=== PATIENT | female | born 1995 | race Caucasian/White ===

== ENCOUNTER 2018-02-11 08:56 | Emergency (ER) | payer BC ==
[2018-02-11 09:02] VITALS: RESP 18
[2018-02-11] MEDS ORDERED: SODIUM CHLORIDE 0.9% 1,000 ML IV STA ×2 (09:10)
[2018-02-11] MEDS ORDERED: ONDANSETRON 4 MG/2 ML VIAL IVP STA (09:10)
[2018-02-11] MEDS ORDERED: KETOROLAC 30 MG/ML 1 ML VIAL IVP STA (09:10)
--- NOTE | 2018-02-11 09:14 | ED ---
Abdominal Pain HPI - General Chief Complaint: Abdominal Pain Stated Complaint: ABd Pain Time Seen by Provider: 02/11/18 09:03 Source: patient, RN notes reviewed, old records reviewed Mode of arrival: ambulatory Limitations: no limitations - History of Present Illness Initial Comments: This Patient is 22-year-old female presents emergency department today with chief complaint of abdominal cramping. Patient reports that she has had this similar episode one month ago. Patient reports that she has had no fevers or chills. She reports she has episodes of diarrhea today as well. She denies any surgical or medical history. Her CEREAL MAKER is Dr. Seo. Patient reports that she's been having increased cramping sensations after menstrual cycle the past few months. Patient states she's had no vomiting episodes but does feel slightly nauseated. - Related Data Previous Rx's Medication Instructions Recorded Ibuprofen 400 mg PO TID #20 tablet 02/11/18 Loperamide [Imodium] 2 mg PO TID #12 cap 02/11/18 Allergies Allergy/AdvReac Type Severity Reaction Status Date / Time No Known Allergies Allergy Verified 02/11/18 09:02 Review of Systems ROS Statement: Those systems with pertinent positive or pertinent negative responses have been documented in the HPI. ROS Other: All systems not noted in ROS Statement are negative. Past Medical History Past Medical History: No Reported History History of Any Multi-Drug Resistant Organisms: None Reported Past Surgical History: No Surgical Hx Reported Past Psychological History: No Psychological Hx Reported Smoking Status: Never smoker Past Alcohol Use History: Occasional Past Drug Use History: None Reported General Exam Limitations: no limitations General appearance: alert, in no apparent distress Head exam: Present: atraumatic, normocephalic, normal inspection Eye exam: Present: normal appearance, PERRL, EOMI. Absent: scleral icterus, conjunctival injection, periorbital swelling ENT exam: Present: normal exam, mucous membranes moist Neck exam: Present: normal inspection. Absent: tenderness, meningismus, lymphadenopathy Respiratory exam: Present: normal lung sounds bilaterally. Absent: respiratory distress, wheezes, rales, rhonchi, stridor Cardiovascular Exam: Present: regular rate, normal rhythm, normal heart sounds. Absent: systolic murmur, diastolic murmur, rubs, gallop, clicks GI/Abdominal exam: Present: soft, normal bowel sounds. Absent: distended, tenderness, guarding, rebound, rigid Extremities exam: Present: normal inspection, full ROM, normal capillary refill. Absent: tenderness, pedal edema, joint swelling, calf tenderness Back exam: Present: normal inspection Neurological exam: Present: alert, oriented X3, CN II-XII intact Psychiatric exam: Present: normal affect, normal mood Skin exam: Present: warm, dry, intact, normal color. Absent: rash Course Vital Signs 02/11/18 09:00 Temperature 98.2 F Pulse Rate 81 Respiratory 18 Rate Blood Pressure 131/76 O2 Sat by Pulse 98 Oximetry Medical Decision Making - Medical Decision Making 22-year-old female presents emergency room today with lower abdominal cramping, complains of some diarrhea as well. May labwork was reviewed and unremarkable. Urinalysis is negative. Her last menstrual period was 2 weeks ago. She has no vaginal bleeding. Patient pelvic ultrasound was negative for any acute process besides some mild free fluid which is likely physiologic. Patient was given Toradol and Zofran. She does feel much better after fluids and medications time. symptoms are likely related to changes during her menstrual cycle as well as IBS. Discussed she can follow-up with her PCP. We' ll give the Patient medication for diarrhea. Patient nurse's treatment plan will comply. Return parameters were discussed. - Lab Data Result diagrams: 02/11/18 09:27 02/11/18 09:27 Lab Results 02/11/18 02/11/18 02/11/18 Range/Units 09:27 09:27 09:27 WBC 6.8 (3.8-10.6) k/uL RBC 5.35 (3.80-5.40) m/uL Hgb 13.6 (11.4-16.0) gm/dL Hct 42.3 (34.0-46.0) % MCV 79.2 L (80.0-100.0) fL MCH 25.5 (25.0-35.0) pg MCHC 32.2 (31.0-37.0) g/dL RDW 13.1 (11.5-15.5) % Plt Count 250 (150-450) k/uL Neutrophils % 55 % Lymphocytes % 34 % Monocytes % 4 % Eosinophils % 5 % Basophils % 1 % Neutrophils # 3.8 (1.3-7.7) k/uL Lymphocytes # 2.3 (1.0-4.8) k/uL Monocytes # 0.3 (0-1.0) k/uL Eosinophils # 0.4 (0-0.7) k/uL Basophils # 0.0 (0-0.2) k/uL PT 10.0 (9.0-12.0) sec INR 1.0 (<1.2) APTT 27.0 (22.0-30.0) sec Sodium 141 (137-145) mmol/L Potassium 4.2 (3.5-5.1) mmol/L Chloride 108 H (98-107) mmol/L Carbon Dioxide 25 (22-30) mmol/L Anion Gap 8 mmol/L BUN 13 (7-17) mg/dL Creatinine 0.68 (0.52-1.04) mg/dL Est GFR (CKD-EPI)AfAm >90 (>60 ml/min/1.73 sqM) Est GFR (CKD-EPI)NonAf >90 (>60 ml/min/1.73 sqM) Glucose 88 (74-99) mg/dL Calcium 9.6 (8.4-10.2) mg/dL Total Bilirubin 0.2 (0.2-1.3) mg/dL AST 14 (14-36) U/L ALT 29 (9-52) U/L Alkaline Phosphatase 48 (38-126) U/L Total Protein 6.9 (6.3-8.2) g/dL Albumin 4.2 (3.5-5.0) g/dL Amylase 42 (30-110) U/L Lipase 48 (23-300) U/L Urine Color Urine Appearance (Clear) Urine pH (5.0-8.0) Ur Specific [place] (1.001-1.035) Urine Protein (Negative) Urine Glucose (UA) (Negative) Urine Ketones (Negative) Urine Blood (Negative) Urine Nitrite (Negative) Urine Bilirubin (Negative) Urine Urobilinogen (<2.0) mg/dL Ur Leukocyte Esterase (Negative) Urine RBC (0-5) /hpf Urine WBC (0-5) /hpf Ur Squamous Epith Cells (0-4) /hpf Urine Bacteria (None) /hpf Urine Mucus (None) /hpf Urine HCG, Qual (Not Detectd) 02/11/18 02/11/18 Range/Units 09:27 09:27 WBC (3.8-10.6) k/uL RBC (3.80-5.40) m/uL Hgb (11.4-16.0) gm/dL Hct (34.0-46.0) % MCV (80.0-100.0) fL MCH (25.0-35.0) pg MCHC (31.0-37.0) g/dL RDW (11.5-15.5) % Plt Count (150-450) k/uL Neutrophils % % Lymphocytes % % Monocytes % % Eosinophils % % Basophils % % Neutrophils # (1.3-7.7) k/uL Lymphocytes # (1.0-4.8) k/uL Monocytes # (0-1.0) k/uL Eosinophils # (0-0.7) k/uL Basophils # (0-0.2) k/uL PT (9.0-12.0) sec INR (<1.2) APTT (22.0-30.0) sec Sodium (137-145) mmol/L Potassium (3.5-5.1) mmol/L Chloride (98-107) mmol/L Carbon Dioxide (22-30) mmol/L Anion Gap mmol/L BUN (7-17) mg/dL Creatinine (0.52-1.04) mg/dL Est GFR (CKD-EPI)AfAm (>60 ml/min/1.73 sqM) Est GFR (CKD-EPI)NonAf (>60 ml/min/1.73 sqM) Glucose (74-99) mg/dL Calcium (8.4-10.2) mg/dL Total Bilirubin (0.2-1.3) mg/dL AST (14-36) U/L ALT (9-52) U/L Alkaline Phosphatase (38-126) U/L Total Protein (6.3-8.2) g/dL Albumin (3.5-5.0) g/dL Amylase (30-110) U/L Lipase (23-300) U/L Urine Color Yellow Urine Appearance Cloudy H (Clear) Urine pH 6.5 (5.0-8.0) Ur Specific [place] 1.027 (1.001-1.035) Urine Protein Trace H (Negative) Urine Glucose (UA) Negative (Negative) Urine Ketones Negative (Negative) Urine Blood Negative (Negative) Urine Nitrite Negative (Negative) Urine Bilirubin Negative (Negative) Urine Urobilinogen <2.0 (<2.0) mg/dL Ur Leukocyte Esterase Negative (Negative) Urine RBC <1 (0-5) /hpf Urine WBC 1 (0-5) /hpf Ur Squamous Epith Cells 4 (0-4) /hpf Urine Bacteria Rare H (None) /hpf Urine Mucus Rare H (None) /hpf Urine HCG, Qual Not Detected (Not Detectd) - Radiology Data Radiology results: report reviewed Skin small free fluid, likely physiologic and bilateral ovarian follicles also likely physiological. Otherwise unremarkable pelvic ultrasound with no endometrial thickening. Disposition Clinical Impression: Abdominal cramping, Diarrhea Disposition: HOME SELF-CARE Condition: Good Instructions: Acute Diarrhea (ED), Abdominal Pain (ED) Additional Instructions: Patient advised to take Motrin and Tylenol for pain. Patient can use the diarrhea medication as well as seated. Return to emergency department if any alarming signs or symptoms occur. Follow-up with primary care physician. Prescriptions: Ibuprofen 400 mg PO TID #20 tablet Loperamide [Imodium] 2 mg PO TID #12 cap Is patient prescribed a controlled substance at d/c from ED?: No Referrals: None,Stated [Primary Care Provider] - 1-2 days La Yanez MD [STAFF PHYSICIAN] - 1-2 days Time of Disposition: 10:53
[2018-02-11 09:37] LABS: Basophils % (A) 1 %; Eosinophils # (A) 0.4 k/uL (0-0.7); Eosinophils % (A) 5 %; HCT 42.3 % (34.0-46.0); HGB 13.6 gm/dL (11.4-16.0); Lymphocytes # (A) 2.3 k/uL (1.0-4.8); Lymphocytes % (A) 34 %; MCH 25.5 pg (25.0-35.0); MCHC 32.2 g/dL (31.0-37.0); MCV 79.2 fL (80.0-100.0); Mean Platelet Volume 7.1; Monocytes # (A) 0.3 k/uL (0-1.0); Monocytes % (A) 4 %; Neutrophils # (A) 3.8 k/uL (1.3-7.7); Neutrophils % (A) 55 %; Platelet Count 250 k/uL (150-450); RBC 5.35 m/uL (3.80-5.40); RDW 13.1 % (11.5-15.5); WBC 6.8 k/uL (3.8-10.6)
[2018-02-11 09:46] LABS: Appearance,Urine Cloudy (Clear); Bacteria,Urine Rare /hpf; Bilirubin,Urine Negative (Negative); Blood,Urine Negative (Negative); Color,Urine Yellow; Glucose,Urine (UA) Negative (Negative); Ketones,Urine Negative (Negative); Leukocyte Esterase,Urine Negative (Negative); Mucus,Urine Rare /hpf; Nitrite,Urine Negative (Negative); PH, Urine 6.5 (5.0-8.0); Protein,Urine Trace (Negative); RBC,Urine <1 /hpf (0-5); Specific Gravity,Urine 1.027 (1.001-1.035); Squamous Epithelial Cell,Urine 4 /hpf (0-4); Urobilinogen,Urine <2.0 mg/dL (<2.0); WBC,Urine 1 /hpf (0-5)
[2018-02-11 09:47] LABS: ALT 29 U/L (9-52); AST 14 U/L (14-36); Albumin 4.2 g/dL (3.5-5.0); Alkaline Phosphatase 48 U/L (38-126); Amylase 42 U/L (30-110); Anion Gap 8 mmol/L; Blood Urea Nitrogen 13 mg/dL (7-17); Calcium 9.6 mg/dL (8.4-10.2); Carbon Dioxide 25 mmol/L (22-30); Chloride 108 mmol/L (98-107); Glucose 88 mg/dL (74-99); Lipase 48 U/L (23-300); Potassium 4.2 mmol/L (3.5-5.1); Sodium 141 mmol/L (137-145); Total Bilirubin 0.2 mg/dL (0.2-1.3); Total Protein 6.9 g/dL (6.3-8.2)
--- NOTE | 2018-02-11 10:23 | US ---
EXAMINATION TYPE: US transvaginal DATE OF EXAM: 02/11/2018 COMPARISON: NONE CLINICAL HISTORY: Pain. Patient states she is having increased pelvic cramping following her last 2 p eriods. TECHNIQUE: Transvaginal ER exam. Date of LMP: 01/30/2018 EXAM MEASUREMENTS: Uterus: 6.8 x 3.3 x 3.8 cm Endometrial Stripe: 0.5 cm Right Ovary: 4.0 x 2.5 x 2.5 cm Left Ovary: 3.8 x 2.6 x 2.6 cm 1. Uterus: anteverted 2. Endometrium: wnl 3. Right Ovary: multiple follicles, largest = 0.9cm 4. Left Ovary: multiple follicles, largest = 0.9cm Spectral, color and waveform doppler imaging shows good arterial and venous flow within the ovaries ; there is no evidence for ovarian torsion. 5. Bilateral Adnexa: wnl 6. Posterior cul-de-sac: small amount of free fluid IMPRESSION: Scant amount of free fluid, likely physiologic and bilateral ovarian follicles, also like ly physiologic. Otherwise unremarkable pelvic ultrasound with no endometrial thickening.
[2018-02-11 11:25] VITALS: BP 110/56; PULSE 67; TEMP 98.8
== END 2018-02-11 11:26 | disposition home or self-care (01) ==
LOC: EC 08:56
DX: R10.30 Lower abdominal pain, unspecified (principal); R19.7 Diarrhea, unspecified; R11.0 Nausea
CPT/HCPCS: 36415; 80053; 82150; 83690; 85025; 85610; 85730; 81001; 81025; 87086; 93975; 76830; 99284; 96374; 96375; 96361 ×2; J2405; J1885

== ENCOUNTER 2020-02-22 08:40 | Emergency (ER) | payer BC ==
[2020-02-22 08:50] VITALS: RESP 18; TEMP 98.6
--- NOTE | 2020-02-22 09:17 | ED ---
General Adult HPI - General Chief complaint: Chest Pain Stated complaint: 28 wks preg/back pain Time Seen by Provider: 02/22/20 09:02 Source: patient, family, RN notes reviewed Mode of arrival: ambulatory Limitations: no limitations - History of Present Illness Initial comments: Patient is a pleasant 24-year-old female presenting to the emergency Department with right-sided thoracic back pain. Onset of symptoms was 437 this morning. Discomfort is moderate to severe. Patient has had similar episodes several times previously, twice in the past few days. Patient states discomfort is positional. No shortness of breath. No chest pain. No abdominal pain. No pelvic pain or vaginal bleeding. Patient is 28 weeks gravid. - Related Data Home Medications Medication Instructions Recorded Confirmed Kuo-Jfwi-Uabzs Acid 1 cap PO HS 02/22/20 02/22/20 [-U Capsule (formulary)] Previous Rx's Medication Instructions Recorded Cyclobenzaprine [Flexeril] 10 mg PO TID PRN #12 tablet 02/22/20 Allergies Allergy/AdvReac Type Severity Reaction Status Date / Time No Known Allergies Allergy Verified 02/22/20 09:31 Review of Systems ROS Statement: Those systems with pertinent positive or pertinent negative responses have been documented in the HPI. ROS Other: All systems not noted in ROS Statement are negative. Constitutional: Denies: fever Eyes: Denies: eye pain ENT: Denies: ear pain Respiratory: Denies: cough, dyspnea Cardiovascular: Denies: chest pain Endocrine: Denies: fatigue Gastrointestinal: Denies: abdominal pain Genitourinary: Denies: dysuria Musculoskeletal: Reports: as per HPI, back pain Skin: Denies: rash Neurological: Denies: weakness Past Medical History Past Medical History: No Reported History History of Any Multi-Drug Resistant Organisms: None Reported Past Surgical History: No Surgical Hx Reported Past Psychological History: No Psychological Hx Reported Smoking Status: Never smoker Past Alcohol Use History: Occasional Past Drug Use History: None Reported General Exam Limitations: no limitations General appearance: alert, in no apparent distress Head exam: Present: normocephalic Eye exam: Present: normal appearance Neck exam: Present: normal inspection Respiratory exam: Present: normal lung sounds bilaterally. Absent: chest wall tenderness Cardiovascular Exam: Present: regular rate, normal rhythm Expanded Peripheral pulses: 2+: Posterior Tibialis (R), Posterior Tibialis (L), Dorsalis Pedis (R), Dorsalis Pedis (L) GI/Abdominal exam: Present: soft, distended (Consistent with a gravid state of 28 weeks). Absent: tenderness, guarding, rebound, rigid Extremities exam: Present: normal inspection. Absent: pedal edema, calf tenderness Back exam: Present: tenderness (Muscle spasm right parathoracic region approximately T7 through T9.) Neurological exam: Present: alert Psychiatric exam: Present: normal affect, normal mood Skin exam: Present: normal color Course Vital Signs 02/22/20 02/22/20 08:47 09:07 Temperature 98.6 F Pulse Rate 99 Respiratory 18 18 Rate Blood Pressure 132/83 O2 Sat by Pulse 98 Oximetry - Reevaluation(s) Reevaluation #1: 02/22/20 09:20 heart tones by nursing staff 135-145 EKG Findings - EKG Comments: EKG Findings:: EKG shows sinus rhythm with a rate of 94. ID 106. QRS 84. QT 348. QTC 435. Normal axis. Normal QRS. Nonspecific T waves. Medical Decision Making - Medical Decision Making Case was discussed in detail with Dr. Lyn who is familiar with her patient. She is agreeable with injection and prescription for muscle relaxers. She does want to have a 20 minute nonstress test done by OB nurse and they have been called down. She would like to follow-up with patient within the week. - Radiology Data Radiology results: image reviewed (Chest x-ray shows no acute process) Disposition Clinical Impression: Back pain Disposition: HOME SELF-CARE Condition: Stable Instructions (If sedation given, give patient instructions): Back Pain (ED) Additional Instructions: Please follow-up with Dr. Lyn in the next couple of days for recheck. Please also follow-up with primary care physician. Return for difficulty in breathing, increase pain, change or worsening symptoms, or other concerns. Pres[facility] sent to [facility] Prescriptions: Cyclobenzaprine [Flexeril] 10 mg PO TID PRN #12 tablet PRN Reason: Pain Is patient prescribed a controlled substance at d/c from ED?: No Referrals: Christopher Cheney III, MD [Primary Care Provider] - 1-2 days Time of Disposition: 09:47
--- NOTE | 2020-02-22 09:28 | XR ---
EXAMINATION TYPE: XR chest 2V DATE OF EXAM: 02/22/2020 CLINICAL HISTORY: Back pain TECHNIQUE: Frontal and lateral views of the chest are obtained. COMPARISON: None FINDINGS: The cardiomediastinal silhouette is within normal limits for size. Pulmonary vasculature i s normal. There is no focal air space opacity, pleural effusion, or pneumothorax seen. The osseous st ructures are intact. IMPRESSION: No acute cardiopulmonary process.
[2020-02-22] MEDS ORDERED: ORPHENADRINE 30 MG/ML 2 ML VIAL IM STA (09:45)
[2020-02-22 10:06] VITALS: BP 119/72; PULSE 92
== END 2020-02-22 10:05 | disposition home or self-care (01) ==
LOC: EC 08:40
DX: O26.893 Other specified pregnancy related conditions, third trimester (principal); M54.9 Dorsalgia, unspecified; Z3A.28 28 weeks gestation of pregnancy
CPT/HCPCS: 93005; 71046; 99285; 96372; J2360

== ENCOUNTER 2020-02-22 10:12 | Outpatient (CLI) | payer BC ==
[2020-02-22 11:29] VITALS: BP 128/65; PULSE 76; RESP 17; TEMP 97.8
--- NOTE | 2020-02-24 09:28 | P.MSEPDOC ---
Presenting Problems - Arrival Data Date of Arrival on Unit: 02/22/20 Time of Arrival on Unit: 10:12 Mode of Transport: Ambulatory - Complaint OB-Reason for Admission/Chief Complaint: NST Comment: pt sent up from ER to have NST done per Dr. Powell Medical History - Information : 1 Para: 0 Term: 0 : 0 Abortions: Spontaneous or Elective: 0 Number of Living Children: 0 - Gestational Age Gestational Age by MEHUL (wks/days): 28 Weeks and 2 Days Review of Systems - Review of Systems Constitutional: No problems Breast: No problems ENT: No problems Cardiovascular: No problems Respiratory: No problems Gastrointestinal: No problems Genitourinary: No problems Musculoskeletal: No problems Neurological: No problems Skin: No problems Vital Signs - Temperature Temperature: 97.8 F Temperature Source: Temporal Artery Scan - Pulse Right Brachial Pulse Rate: 76 Pulse Assessment Method: Automatic Cuff - Respirations Respiratory Rate: 17 Oxygen Delivery Method: Room Air O2 Sat by Pulse Oximetry: 98 - Blood Pressure Right Arm Blood Pressure: 128/65 Blood Pressure Mean: 86 Blood Pressure Source: Automatic Cuff Medical Screen Scoring (Pre) - Cervical Exam Dilation: Exam Deferred Effacement: Exam Deferred Membranes: Intact - Uterine Contractions Frequency: > 5 minutes apart = 1 Duration: N/A Intensity: N/A - Maternal Vital Signs Maternal Temperature: N/A Maternal Blood Pressure: N/A Signs of Preeclampsia: N/A Maternal Respirations: N/A - Maternal Trauma Maternal Trauma: N/A - Assessment - Baby A Baseline FHR: 135 Heart Rate - NICHD Category: Category I (Normal) = 0 NST: Reactive Position: N/A Station: N/A - Total Score - Baby A Total Score - Baby A: 1 - Total Score - Baby B Total Score - Baby B: 1 - Total Score - Baby C Total Score - Baby C: 1 - Level of Risk - Baby A Level of Risk - Baby A: Low (0-5) - Level of Risk - Baby B Level of Risk - Baby B: Low (0-5) - Level of Risk - Baby C Level of Risk - Baby C: Low (0-5) Physician Notification (Pre) - Physician Notified Physician Notified Date: 02/22/20 Physician Notified Time: 11:08 New Order Received: Yes - Notification Comment Comment: reported reactive nst, cervical exam done, pt closed/thick/high, pt discharged home with instructions to call for follow up in office Disposition - Disposition OB Disposition: Triage, Discharge to home, Written follow up instructions reviewed Discharge Date: 02/22/20 Discharge Time: 11:25 I agree with the RN Medical Screening Exam: Yes Risk & Benefit of care provided described in d/c instruction: Yes Diagnosis: LOW BACK PAIN
== END 2020-02-22 11:25 | disposition home or self-care (01) ==
LOC: FBPOP 10:12
PROVIDERS: ATTEND Obstetrics & Gynecology Obstetrics
DX: O99.89 Other specified diseases and conditions complicating pregnancy, childbirth and the puerperium (principal); M54.5 Low back pain; Z3A.28 28 weeks gestation of pregnancy
CPT/HCPCS: 59025; 99213

== ENCOUNTER 2020-05-08 06:05 | Inpatient (IN) | payer BC ==
[2020-05-08] MEDS ORDERED: METHYLERGONOVINE 0.2 MG/ML 1 ML AMP IM PRN (06:23)
[2020-05-08] MEDS ORDERED: LIDOCAINE 0.5% (PF) 5 MG/ML (50 ML SDV) SQ PRN (06:23)
[2020-05-08] MEDS ORDERED: CARBOPROST TROMETHAMINE 250 MCG/ML 1 ML AMP IM PRN (06:23)
[2020-05-08] MEDS ORDERED: TERBUTALINE 1 MG/ML VIAL SQ PRN (06:23)
[2020-05-08] MEDS ORDERED: OXYTOCIN 10 UNIT/ML 1 ML VIAL IM PRN (06:23)
[2020-05-08] MEDS ORDERED: OXYTOCIN 30 UNITS/500 ML NS 30 UNIT in SALINE 1 500ML.BAG IV SCH (06:30)
[2020-05-08] MEDS: LACTATED RINGERS 1,000 ML IV SCH ×2 (06:33→10:29)
[2020-05-08 06:51] LABS: Basophils % (A) 0 %; Eosinophils # (A) 0.2 k/uL (0-0.7); Eosinophils % (A) 2 %; HCT 36.8 % (34.0-46.0); HGB 11.5 gm/dL (11.4-16.0); Hypochromasia Slight; Lymphocytes # (A) 2.3 k/uL (1.0-4.8); Lymphocytes % (A) 20 %; MCH 24.4 pg (25.0-35.0); MCHC 31.3 g/dL (31.0-37.0); MCV 77.9 fL (80.0-100.0); Mean Platelet Volume 9.1; Monocytes # (A) 0.5 k/uL (0-1.0); Monocytes % (A) 4 %; Neutrophils # (A) 8.3 k/uL (1.3-7.7); Neutrophils % (A) 72 %; Platelet Count 261 k/uL (150-450); RBC 4.72 m/uL (3.80-5.40); RDW 15.4 % (11.5-15.5); WBC 11.6 k/uL (3.8-10.6)
--- NOTE | 2020-05-08 08:20 | P.HPOB ---
History of Present Illness H&P Date: 05/08/20 Chief Complaint: IUP at 39 and 1/sevenths weeks this is a 24-year-old 1 para 0 at 39 and one sevenths weeks that presented to labor and delivery for elective induction of labor. Patient struggled with low back pain throughout the and desired induction seco ndary to maternal discomfort. Patient is really been receiving routine care which has been essentially uncomplicated. Patient notes good movement and occasional contractions this morning. She denies vaginal bleeding or loss of fluid. on bloodwork patient has a blood type of O-, rubella status immune, RPR nonreactive, hep B surface antigen negative, HIV negative she did receive program on 02/19, TDap on 03/19, group beta strep was negative on 04/19. Review of Systems Constitutional: Denies chills, Denies fatigue, Denies fever Ears, nose, mouth and throat: Denies headache Cardiovascular: Reports leg edema Respiratory: Denies dyspnea Gastrointestinal: Denies constipation, Denies diarrhea, Denies nausea, Denies vomiting Genitourinary: Reports Past Medical History Past Medical History: No Reported History History of Any Multi-Drug Resistant Organisms: None Reported Past Surgical History: No Surgical Hx Reported Additional Past Surgical History / Comment(s): wisdom teeth Past Anesthesia/Blood Transfusion Reactions: No Reported Reaction Past Psychological History: No Psychological Hx Reported Smoking Status: Never smoker Past Alcohol Use History: None Reported Past Drug Use History: None Reported - Past Family History Mother Family Medical History: No Reported History Medications and Allergies Home Medications Medication Instructions Recorded Confirmed Type Acetaminophen [Tylenol] 325 mg PO Q4H PRN 02/22/20 05/08/20 History Lra-Tlor-Awcpt Acid 1 cap PO HS 02/22/20 05/08/20 History [-U Capsule (formulary)] Famotidine [Pepcid] 10 mg PO DAILY 05/08/20 05/08/20 History Allergies Allergy/AdvReac Type Severity Reaction Status Date / Time No Known Allergies Allergy Verified 05/08/20 06:22 Exam Osteopathic Statement: *. No significant issues noted on an osteopathic structural exam other than those noted in the History and Physical/Consult. 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 Results Result Diagrams: 05/08/20 06:30 Abnormal Lab Results - Last 24 Hours (Table) 05/08/20 Range/Units 06:30 WBC 11.6 H (3.8-10.6) k/uL MCV 77.9 L (80.0-100.0) fL MCH 24.4 L (25.0-35.0) pg Neutrophils # 8.3 H (1.3-7.7) k/uL Assessment and Plan (1) Term Current Visit: Yes Status: Acute Code(s): Z34.90 - ENCNTR FOR SUPRVSN OF NORMAL , UNSP, UNSP TRIMESTER SNOMED Code(s): 70734054 Plan: patient is admitted to labor and delivery for planned Pitocin induction of labor. Pitocin is begun per hospital protocol. Amniotomy was performed and clear fluid was obtained. Options for analgesia were discussed with the patient including Stadol/epidural. Patient does desire epidural when appropriate.
[2020-05-08] MEDS ORDERED: ROPIVACAINE 100 MG, fentaNYL (PF) 200 MCG in SODIUM CHLORIDE 0.9% 76 ML EPIDURAL ONE (10:53)
[2020-05-08] MEDS ORDERED: fentaNYL (PF) 50 MCG/ML 5 ML AMP ONE (13:33)
[2020-05-08] MEDS ORDERED: ROPIVACAINE 5MG/ML 20ML VIAL ONE (13:33)
[2020-05-08] MEDS ORDERED: SODIUM CHLORIDE 0.9% 100 ML BAG ONE (13:33)
[2020-05-08] MEDS ORDERED: HYDROCORTISONE 2.5% RECTAL CREAM 30 GM TUBE RECTAL PRN (19:08)
[2020-05-08] MEDS ORDERED: LANOLIN CREAM 5 GM TUBE TOPICAL PRN (19:08)
[2020-05-08] MEDS ORDERED: SIMETHICONE 80 MG CHEWABLE PO PRN (19:08)
[2020-05-08] MEDS ORDERED: diphenhydrAMINE 25 MG CAP PO PRN (19:08)
[2020-05-08] MEDS ORDERED: diphenhydrAMINE 50 MG/ML 1 ML VIAL IVP PRN ×2 (19:08)
[2020-05-08] MEDS ORDERED: HYDROcodone/APAP 5-325MG 1 EACH TAB PO PRN (19:08)
[2020-05-08] MEDS ORDERED: ZOLPIDEM 5 MG TAB PO PRN (19:08)
[2020-05-08] MEDS ORDERED: diphenhydrAMINE 50 MG CAP PO PRN (19:08)
[2020-05-08] MEDS ORDERED: BENZOCAINE/MENTHOL SPRAY 1 GM/SPRAY AEROSOL TOPICAL PRN (19:08)
--- NOTE | 2020-05-08 19:11 | P.PROBDLV ---
Vaginal Delivery Note - . Vaginal Delivery Note: This 24-year-old 1 para 0 at 39 and one sevenths weeks with an estimated due date of 05/14 presents to labor and delivery for scheduled elective induction of labor. Patient was noted to be 3 cm dilated. Patient was started on Pitocin for induction of labor. Pitocin induction of labor was begun per hospital protocol. Patient underwent amniotomy once regular contractions were noted clear fluid was obtained. Patient progressed through labor eventually becoming uncomfortable and requesting epidural placement. Epidural was placed without difficulty by the anesthesia department. Patien progressed to complete began pushing and had a normal spontaneous vaginal delivery of a viable female at 1842, weight of 7 lbs. 9 oz. with Apgars of 9 and 9 at one and 5 minutes respectively. Infant did have a loose body cord which was delivered through. After two-minute delayed the umbilical cord was doubly clamped and cut and the placenta was delivered spontaneous intact with a three-vessel cord being noted. On inspection the patient's vaginal vault a a second degree vaginal laceration was noted this was repaired in the usual fashion with 3-0 Rapide. Hemostasis was appreciated and the closure. Rectal exam was performed and found to be normal. Uterus is noted to be firm and below the umbilicus. Estimated blood loss 200 mL. patient and tolerated delivery well and are resting comfortably.
[2020-05-08] MEDS ORDERED: OXYTOCIN 20 UNITS/1000 ML NS 1,000 ML IV SCH (19:15)
[2020-05-08] MEDS: IBUPROFEN 600 MG TAB PO PRN (19:32)
[2020-05-08] MEDS: SENNOSIDES-DOCUSATE SODIUM 1 EACH TAB PO SCH (19:33)
[2020-05-08] MEDS ORDERED: PRENATAL VIT-IRON-FOLIC ACID 1 EACH CAP PO SCH (21:00)
[2020-05-08] MEDS ORDERED: Rhogam IMMUNE GLOBULIN 1,500 UNIT/1 ML IM ONE (23:48)
[2020-05-09] MEDS: IBUPROFEN 600 MG TAB PO PRN ×2 (05:51→13:44)
[2020-05-09 05:59] VITALS: RESP 16
[2020-05-09 07:33] LABS: Basophils % (A) 0 %; Eosinophils # (A) 0.1 k/uL (0-0.7); Eosinophils % (A) 0 %; HCT 31.3 % (34.0-46.0); HGB 10.2 gm/dL (11.4-16.0); Hypochromasia Slight; Lymphocytes % (A) 10 %; MCH 25.4 pg (25.0-35.0); MCHC 32.5 g/dL (31.0-37.0); MCV 78.1 fL (80.0-100.0); Mean Platelet Volume 7.5; Monocytes # (A) 0.6 k/uL (0-1.0); Monocytes % (A) 3 %; Neutrophils # (A) 16.7 k/uL (1.3-7.7); Neutrophils % (A) 85 %; Platelet Count 208 k/uL (150-450); RBC 4.01 m/uL (3.80-5.40); RDW 15.4 % (11.5-15.5); WBC 19.7 k/uL (3.8-10.6)
--- NOTE | 2020-05-09 08:28 | P.DS ---
Providers Date of admission: 05/08/20 06:05 Expected date of discharge: 05/09/20 Attending physician: Angy Powell Primary care physician: Stated None - Discharge Diagnosis(es) (1) Term Current Visit: Yes Status: Acute (2) Status post normal vaginal delivery Current Visit: Yes Status: Acute (3) Obstetrical laceration, second degree Current Visit: Yes Status: Acute Hospital Course: This is a 24-year-old that presented to labor and delivery at 39 and one sevenths weeks for planned induction of labor. Patient has been struggling with back pain throughout and wished induction of labor. Patient was admitted to labor and delivery and Pitocin induction of labor was begun, per hospital protocol. Patient underwent amniotomy and clear fluid was obtained. Patient progressed in labor eventually becoming uncomfortable and requesting epidural placement. Epidural was placed without difficulty by the anesthesia department. Patient progressed to complete began pushing and had a normal spontaneous vaginal delivery of a viable female infant at 1842, weight of 7 lbs. 9 oz. with Apgars of 9 and 9 at one and 5 minutes respect daily. Patient did sustain a second-degree vaginal laceration which was repaired in the usual fashion with 3- 0 Rapide. Patient's post course has been uneventful. On this day 1 she is ambulating and voiding without difficulty. She is tolerating a regular diet without nausea or vomiting. She is bottle feeding. She does desire discharge home at 24 hours if appropriate. Patient Condition at Discharge: Good Plan - Discharge Summary New Discharge Prescriptions: No Action Xtw-Falo-Mpiht Acid [-U Capsule (formulary)] 1 cap PO HS Acetaminophen [Tylenol] 325 mg PO Q4H PRN PRN Reason: Pain Famotidine [Pepcid] 10 mg PO DAILY Discharge Medication List Acetaminophen [Tylenol] 325 mg PO Q4H PRN 02/22/20 [History] Jsv-Irii-Oowmp Acid [-U Capsule (formulary)] 1 cap PO HS 02/22/20 [History] Famotidine [Pepcid] 10 mg PO DAILY 05/08/20 [History] Follow up Appointment(s)/Referral(s): Angy Powell DO [Doctor of Osteopathic Medicine] - 4 Weeks Patient Instructions/Handouts: Vaginal Delivery (DC), Vaginal Delivery (GEN) Activity/Diet/Wound Care/Special Instructions: Patient can expect. Like bleeding for 4-6 weeks status post vaginal delivery. Patient is to use dlsk-ljn-aatfoll ibuprofen 600 mg as needed for pain. She is to avoid tub baths or intercourse until 6 weeks post . She is to call with any concerns prior to her visit. Discharge Disposition: HOME SELF-CARE
[2020-05-09] MEDS: SENNOSIDES-DOCUSATE SODIUM 1 EACH TAB PO SCH (08:33)
[2020-05-09] MEDS: ACETAMINOPHEN TAB 325 MG TAB PO PRN ×2 (08:33→18:30)
[2020-05-09 16:16] VITALS: BP 122/66; PULSE 86; TEMP 97.9
== END 2020-05-09 19:50 | disposition home or self-care (01) | DRG 807 ==
LOC: 4FBP 06:05
PROVIDERS: ADMIT Obstetrics & Gynecology Obstetrics; ATTEND Obstetrics & Gynecology Obstetrics
PROC: 3E033VJ Introduction of Other Hormone into Peripheral Vein, Percutaneous Approach (ICD-10-PCS; principal; 2020-05-08)
PROC: 10907ZC Drainage of Amniotic Fluid, Therapeutic from Products of Conception, Via Natural or Artificial Opening (ICD-10-PCS; principal; 2020-05-08)
PROC: 3E0R3BZ Introduction of Anesthetic Agent into Spinal Canal, Percutaneous Approach (ICD-10-PCS; principal; 2020-05-08)
PROC: 00HU33Z Insertion of Infusion Device into Spinal Canal, Percutaneous Approach (ICD-10-PCS; principal; 2020-05-08)
PROC: 10E0XZZ Delivery of Products of Conception, External Approach (ICD-10-PCS; principal; 2020-05-08)
PROC: 0KQM0ZZ Repair Perineum Muscle, Open Approach (ICD-10-PCS; principal; 2020-05-08)
DX: O69.81X0 Labor and delivery complicated by cord around neck, without compression, not applicable or unspecified (principal); Z37.0 Single live birth; M54.5 Low back pain; O70.1 Second degree perineal laceration during delivery; O99.891 Other specified diseases and conditions complicating pregnancy; Z3A.39 39 weeks gestation of pregnancy
CPT/HCPCS: 85025; 85461; 86850; 86870; 86880; 86900; 86901

== ENCOUNTER → 2021-10-07 | Outpatient (CLI) | payer OTHER ==
--- NOTE | 2021-10-08 08:57 | US ---
EXAMINATION TYPE: US pelvis complete transvag DATE OF EXAM: 10/07/2021 COMPARISON: 02/11/2018 CLINICAL HISTORY: 26-year-old female N92.6 IRREGULAR MENSES. TECHNIQUE: Transabdominal sonographic images of the pelvis were acquired. Transvaginal sonographic i mages were medically necessary to better assess the following anatomy: Ovaries Date of LMP: 09/22/2021, FINDINGS: EXAM MEASUREMENTS: Uterus: 7.0 x 4.0 x 3.8 cm Endometrial Stripe: 0.3 cm Right Ovary: 2.9 x 2.6 x 1.9 cm Left Ovary: 3.0 x 1.9 x 2.3 cm 1. Uterus: Anteverted, slightly retroflexed and otherwise wnl 2. Endometrium: wnl 3. Right Ovary: Follicles seen 4. Left Ovary: Follicles seen 5. Bilateral Adnexa: wnl 6. Posterior cul-de-sac: no free fluid IMPRESSION: Follicular change in both ovaries. No pelvic free fluid. Endometrial stripe measuring 3 mm thick.
== END | disposition home or self-care (01) ==
LOC: RADUSWWP 16:11
PROVIDERS: ATTEND Obstetrics & Gynecology
DX: N83.02 Follicular cyst of left ovary (principal); N83.01 Follicular cyst of right ovary
CPT/HCPCS: 76830; 76856

== ENCOUNTER → 2022-02-24 | Outpatient (CLI) | payer OTHER ==
--- NOTE | 2022-02-25 07:23 | US ---
EXAMINATION TYPE: Transabdominal DATE OF EXAM: 02/24/2022 4:34 PM COMPARISON: NONE CLINICAL HISTORY: Z36.89 CONFIRM GESTATIONAL AGE AND VIABILITY. Confirm dates EXAM PERFORMED: Transabdominal (TA) EXAM MEASUREMENTS: GESTATIONAL AGE / DATING Physician Established: Not yet established Dates by LMP: (12 weeks/6 days) EDC: 09/02/22 Dates by First Scan: No previous this is first scan Dates by Current Scan for: (12 weeks/6 days) EDC: 09/02/22 MATERNAL ANATOMY Uterus: 14.8 x 6.5 x 9.0cm Right Ovary: 3.1 x 1.6 x 1.8cm Left Ovary: 2.7 x 2.0 x 1.3cm Post CDS / Adnexa: wnl Presence of free fluid: no Presence of corpus luteal cyst: yes, right ovary = 2.3 x 1.3 x 2.3cm GESTATION / SURVEY CRL: 6.4cm (12 weeks/6 days) Yolk Sac (normal less than 6mm): not seen Heart Rate: 165 bpm Rhythm: Normal IUP: Viable IUP Date of LMP: 11/26/21 Beta HcG (if available): Not available at this time IMPRESSION: Single live intrauterine gestation with estimated gestational age of 12 weeks 6 days and estimated du e date of 09/02/2022.
== END | disposition home or self-care (01) ==
LOC: RADUSWWP 16:11
PROVIDERS: ATTEND Obstetrics & Gynecology
DX: Z36.89 Encounter for other specified antenatal screening (principal); Z3A.12 12 weeks gestation of pregnancy
CPT/HCPCS: 76801

== ENCOUNTER → 2022-04-08 | Outpatient (CLI) | payer OTHER ==
--- NOTE | 2022-04-09 10:19 | US ---
EXAMINATION TYPE: US OB anatomy transabd DATE OF EXAM: 04/08/2022 COMPARISON: 02/24/2022 HISTORY: 26-year-old female O36.62X0 MATERNAL CARE FOR EXCESS GROWTH, SE. anatomy. . TECHNIQUE: Transabdominal (TA) EXAM MEASUREMENTS: GESTATIONAL AGE / DATING Physician Established: (19 weeks/0 days) EDC: 09/02/2022 Dates by LMP: (19 weeks/0 days) EDC: 09/02/2022 Dates by First Scan: (19 weeks/0 days) EDC: 09/02/2022 Dates by Current Scan for: (19 weeks/4 days). 4 days more growth than expected compared to 2. EDC: 08/29/2022 SURVEY IUP: Single PLACENTA: Category Development Analyst notes: Anterior. Appeared low lying before patient emptied her bladder. Patient emptied her bladder a second time, and placenta does not appear to be low lying. PREVIA: No previa, inferior placental margin located approximately 4 to 5 cm from the internal cervic al os. CINDY: 14.7 cm Normal CERVICAL LENGTH (transabdominal: norm > 3.0cm): 4.0 cm BIOMETRY PRESENTATION: Transverse LIE: Transverse lie with head maternal R BPD: 4.5 cm 19 weeks / 5 days HC: 16.4 cm 19 weeks / 1 day AC: 13.9 cm 19 weeks / 3 days FL: 3.1 cm 19 weeks / 5 days ESTIMATED WEIGHT IN GRAMS: 292 grams ESTIMATED WEIGHT IN LBS/OZ: 0 lbs. 10 oz. WEIGHT PERCENTAGE BASED ON ESTABLISHED DATE: 71% HC/AC: 1.18 Normal FL/AC: 22% HEART RATE: 140 bpm RHYTHM: Normal ANATOMY SEEN (within normal limits): Lateral Vent (< 1 cm) 0.64 cm Cisterna Magna (< 1.1 cm) 0.38 cm Nuchal Fold (< 0.6 cm) 0.26 cm Cerebellum (varies with age) 1.86 cm Choroid Plexus (bilateral) Midline Falx Cavus Septi Pellucidi Four Chamber Heart Outflow tracts: LVOT Stomach Situs Nose / Lips Diaphragm Kidneys (bilateral) Bladder Three Vessel Cord Transverse Spine Legs (bilateral) ANATOMY NOT SEEN or SUBOPTIMAL: RVOT Longitudinal Spine (limited visualization of the caudal spine and inferior skin line) Arms (bilateral) (radius and ulna not well delineated along their entire length) Cord Insert (excessive crowding of structures) MEAT PACKAGER NOTES: Incidental finding: echogenic area seen that appears mobile within the gestational sac. Possible clot measurin.6 x 2.3 x 0.7 cm. Recommend reassessment at call back. Patient given scheduling number for OB call back within 1-2 weeks* IMPRESSION: 1. Single live intrauterine with established gestational age of 19 weeks 0 days by LMP. Cur rent ultrasound biometry is concordant (19 weeks 4 days) placed metallic the 71st percentile for [facility]. 2. Anterior placenta initially appeared low. Later in the exam, we were able to confirm that it is lo cated 4 to 5 cm from the internal cervical os. 3. Mobile echogenic area, possible blood clot measuring 2.3 x 1.6 cm dependent within the gestational sac. Reassessed at follow-up. 4. RVOT, inferior aspect of the longitudinal spine, radius/ulna, and cord insertion not optimally vis ualized due to position. Patient can be rescanned in one to 2 weeks to reassess these structure s. The remaining structures appeared normal.
== END | disposition home or self-care (01) ==
LOC: RADUSWWP 15:34
PROVIDERS: ATTEND Obstetrics & Gynecology
DX: O36.62X0 Maternal care for excessive fetal growth, second trimester, not applicable or unspecified (principal); Z3A.19 19 weeks gestation of pregnancy
CPT/HCPCS: 76811

== ENCOUNTER → 2022-04-22 | Outpatient (CLI) | payer OTHER ==
--- NOTE | 2022-04-23 08:05 | US ---
EXAMINATION TYPE: US OB Call Back DATE OF EXAM: 04/22/2022 COMPARISON: US CLINICAL HISTORY: O36.62X0 MATERNAL CARE FOR EXCESS GROWTH. Call back for RVOT, arms, cord inse rtion, longitudinal spine. GESTATIONAL AGE / DATING Dates by Initial Survey Scan: (19 weeks/0 days) EDC: 09/02/2022 HEART RATE: 139 bpm RHYTHM: Normal ANATOMY SEEN (second anatomic survey look): Outflow tracts:? RVOT Cord Insert Longitudinal Spine: Arms (bilateral) Echogenic area seen on prior exam within the gestational sac, unable to visualize on today's ultrasou nd. IMPRESSION: 1. Additional anatomy callback appears unremarkable.
== END | disposition home or self-care (01) ==
LOC: RADUSWWP 16:13
PROVIDERS: ATTEND Obstetrics & Gynecology
DX: O36.62X0 Maternal care for excessive fetal growth, second trimester, not applicable or unspecified (principal); Z3A.19 19 weeks gestation of pregnancy

== ENCOUNTER → 2022-07-29 | Outpatient (CLI) | payer OTHER ==
--- NOTE | 2022-07-29 20:07 | US ---
EXAMINATION TYPE: US OB >= 14 wk fetus DATE OF EXAM: 07/29/2022 COMPARISON: None CLINICAL HISTORY: O36.63X0 MATERNAL CARE FOR EXCESS GROWTH, TH growth. TECHNIQUE: Transabdominal (TA) GESTATIONAL AGE / DATING Physician Established: (35 weeks/4 days) EDC: 08/29/2022 Dates by LMP: (35 weeks/4 days) EDC: 08/29/2022 Dates by First Scan: (12 weeks/4 days) EDC: 09/02/2022 Dates by Current Scan: (35 weeks/1 days) EDC: 09/01/2022 SURVEY IUP: Single PLACENTA: Anterior PREVIA: No Previa CINDY: 14.2 cm Normal CERVICAL LENGTH (transabdominal: norm > 3.0cm): 3.0 cm BIOMETRY PRESENTATION: Vertex LIE: Longitudinal BPD: 9.13 cm 37 weeks / 0 days HC: 31.52 cm 35 weeks / 3 days AC: 32.40 cm 36 weeks / 2 days FL: 6.73 cm 34 weeks / 4 days ESTIMATED WEIGHT IN GRAMS: 2786 grams ESTIMATED WEIGHT IN LBS/OZ: 6 lbs. 2 oz. WEIGHT PERCENTAGE BASED ON ESTABLISHED DATES: 57.5% HC/AC: 0.97 Normal FL/AC: 20.77 Normal HEART RATE: 152 bpm RHYTHM: Normal IMPRESSION: Single live intrauterine gestation with ultrasound age of 35 weeks 1 day. Additional information as d escribed above.
== END | disposition home or self-care (01) ==
LOC: RADUSWWP 15:48
PROVIDERS: ATTEND Obstetrics & Gynecology
DX: O36.63X0 Maternal care for excessive fetal growth, third trimester, not applicable or unspecified (principal); Z3A.35 35 weeks gestation of pregnancy
CPT/HCPCS: 76805

== ENCOUNTER 2023-07-28 17:33 | Emergency (ER) | payer OTHER ==
[2023-07-28 18:11] VITALS: BP 135/84; PULSE 87; RESP 16; TEMP 99
--- NOTE | 2023-07-28 18:27 | ED ---
General Adult HPI - General Source: patient, RN notes reviewed Mode of arrival: ambulatory Limitations: no limitations <Delia Avila - Last Filed: 07/28/23 18:26> <Zachariah Muñoz - Last Filed: 07/29/23 04:01> - General Chief complaint: GI Bleed Stated complaint: Abd Pain, GI Bleed Time Seen by Provider: 07/28/23 18:26 - History of Present Illness Initial comments: 27-year-old female presents to the emergency department for evaluation of lower abdominal cramping with blood in the stool. She states that this started today around 11 AM. She reports that she is having loose bowel movements and it is mostly blood. She denies recent illness. Denies any significant past medical history. (Delia Avila) 27-year-old female presenting with chief complaint of blood in the stool. Symptoms started today around 11 AM. Patient also reports some lower abdominal cramping. Patient has been having loose bowel movements today. She only has bleeding with bowel movements, no hematuria or vaginal bleeding. No history of Crohn's disease or ulcerative colitis. No fevers or chills. No dysuria. No blood thinners. No abdominal surgeries. (Zachariah Muñoz) - Related Data Home Medications Medication Instructions Recorded Confirmed Triamcinolone 0.1% Cream [Kenalog 1 applic TOPICAL BID PRN 07/28/23 07/28/23 0.1% Cream] Allergies Allergy/AdvReac Type Severity Reaction Status Date / Time No Known Allergies Allergy Verified 05/08/20 06:22 Review of Systems ROS Other: All systems not noted in ROS Statement are negative. <Delia Avila - Last Filed: 07/28/23 18:26> ROS Other: All systems not noted in ROS Statement are negative. <Zachariah Muñoz - Last Filed: 07/29/23 04:01> ROS Statement: Those systems with pertinent positive or pertinent negative responses have been documented in the HPI. Past Medical History Past Medical History: No Reported History History of Any Multi-Drug Resistant Organisms: None Reported Past Surgical History: No Surgical Hx Reported Additional Past Surgical History / Comment(s): wisdom teeth Past Anesthesia/Blood Transfusion Reactions: No Reported Reaction Past Psychological History: No Psychological Hx Reported Smoking Status: Never smoker Past Alcohol Use History: None Reported Past Drug Use History: None Reported - Past Family History Mother Family Medical History: Cancer, Thyroid Disorder <Delia Avila - Last Filed: 07/28/23 18:26> General Exam Limitations: no limitations <Delia Avila - Last Filed: 07/28/23 18:26> Limitations: no limitations General appearance: alert, in no apparent distress Head exam: Present: atraumatic, normocephalic Eye exam: Present: normal appearance Neck exam: Present: normal inspection Respiratory exam: Present: normal lung sounds bilaterally. Absent: respiratory distress, wheezes, rales, rhonchi, stridor Cardiovascular Exam: Present: regular rate, normal rhythm, normal heart sounds. Absent: systolic murmur, diastolic murmur, rubs, gallop, clicks GI/Abdominal exam: Present: soft. Absent: distended, tenderness, guarding, rebound, rigid Rectal exam: Present: normal inspection, normal rectal tone, other (No gross blood, occult blood is positive) Neurological exam: Present: alert, oriented X3 Psychiatric exam: Present: normal affect, normal mood Skin exam: Present: warm, dry <Zachariah Muñoz - Last Filed: 07/29/23 04:01> - General Exam Comments Initial Comments: Visual Physical Exam Vital signs reviewed General: Well-appearing, nontoxic, no acute distress. Head: Normocephalic, atraumatic Eyes: PERRLA, EOMI ENT: Airway patent Chest: Nonlabored breathing Skin: No visual rash, normal skin tone Neuro: Alert and oriented 3 Musculoskeletal: No gross abnormalities (Delia Avila) Course Vital Signs 07/28/23 18:05 Temperature 99.0 F Pulse Rate 87 Respiratory 16 Rate Blood Pressure 135/84 O2 Sat by Pulse 98 Oximetry Medical Decision Making <Delia Avila - Last Filed: 07/28/23 18:26> - Lab Data Result diagrams: 07/28/23 18:14 07/28/23 18:14 <Zachariah Muñoz - Last Filed: 07/29/23 04:01> - Medical Decision Making Quick note performed by Delia Avila PA-C (Delia Avila) Was pt. sent in by a medical professional or institution ([facility], AUTO BODY REPAIRMAN, urgent care, hospital, or correction...) When possible be specific @ -No Did you speak to anyone other than the patient for history (EMS, parent, family, police, friend...)? What history was obtained from this source @ -No Did you review nursing and triage notes (agree or disagree)? Why? @ -I reviewed and agree with nursing and triage notes Were old charts reviewed (outside hosp., previous admission, EMS record, old EKG, old radiological studies, urgent care reports/EKG's, correction records)? Report findings @ -No old charts were reviewed Differential Diagnosis (chest pain, altered mental status, abdominal pain women, abdominal pain men, vaginal bleeding, weakness, fever, dyspnea, syncope, headache, dizziness, GI bleed, back pain, seizure, CVA, palpatations, mental health, musculoskeletal)? @ -MDM Differential GI Bleed: Esophageal varices, aortoenteric fistula, Jen-Mcmahan, gastritis, peptic ulcer disease, diverticulosis, inflammatory bowel disease, hemorrhoids, fissure, colitis, malignancy, Meckels diverticulum this is not meant to be an all- inclusive list. EKG interpreted by me (3pts min.). @ -As above X-rays interpreted by me (1pt min.). @ -None done CT interpreted by me (1pt min.). @ -CT shows no site of active bleeding clearly identified within the bowel. No acute findings are evident. U/S interpreted by me (1pt. min.). @ -None done What testing was considered but not performed or refused? (CT, X-rays, U/S, labs)? Why? @ -None What meds were considered but not given or refused? Why? @ -None Did you discuss the management of the patient with other professionals (professionals i.e. , PA, AUTO BODY REPAIRMAN, lab, RT, psych nurse, social science instructor, glost placer, teacher, environmental compliance officer, casework manager)? Give summary @ -No Was smoking cessation discussed for >3mins.? @ -No Was critical care preformed (if so, how long)? @ -No Were there social determinants of health that impacted care today? How? (Homelessness, low income, unemployed, alcoholism, drug addiction, transportation, low edu. Level, literacy, decrease access to med. care, fdc, rehab)? @ -No Was there de-escalation of care discussed even if they declined (Discuss DNR or withdrawal of care, Hospice)? DNR status @ -No What co-morbidities impacted this encounter? (DM, HTN, Smoking, COPD, CAD, Cancer, CVA, ARF, Chemo, Hep., AIDS, mental health diagnosis, sleep apnea, morbid obesity)? @ -None Was patient admitted / discharged? Hospital course, mention meds given and route, prescriptions, significant lab abnormalities, going to OR and other pertinent info. @ -27-year-old female presenting with chief complaint of bright red blood per rectum and lower abdominal cramping that started today. History and physical exam are conducted. Hemoglobin 14.1. WBC 12.1. There was no obvious blood on rectal exam, occult blood is positive. Patient is hemodynamically stable. CT shows no acute process. Patient is educated on today's findings. She is instructed to follow-up with PCP and GI. Report back to ER with any new or worsening symptoms. Follow-up with PCP. Report back to ER with any new or worsening symptoms. Discussed return parameters and answered all questions. Patient conveyed verbal understanding and agreed to the plan. I discussed this case in detail with my attending Dr. Simon Undiagnosed new problem with uncertain prognosis? @ -No Drug Therapy requiring intensive monitoring for toxicity (Heparin, Nitro, Insulin, Cardizem)? @ -No Were any procedures done? @ -No Diagnosis/symptom? @ -Rectal bleeding Acute, or Chronic, or Acute on Chronic? @ -Acute Uncomplicated (without systemic symptoms) or Complicated (systemic symptoms)? @ -Uncomplicated Side effects of treatment? @ -No Exacerbation, Progression, or Severe Exacerbation? @ -No Poses a threat to life or bodily function? How? (Chest pain, USA, CT, pneumonia, PE, COPD, DKA, ARF, appy, cholecystitis, CVA, Diverticulitis, Homicidal, Suicidal, threat to staff... and all critical care pts) @ -Low likelihood (Zachariah Muñoz) - Lab Data Lab Results 07/28/23 07/28/23 07/28/23 Range/Units 18:05 18:14 18:14 WBC 12.1 H (3.8-10.6) k/uL RBC 5.47 H (3.80-5.40) m/uL Hgb 14.1 (11.4-16.0) gm/dL Hct 44.2 (34.0-46.0) % MCV 80.7 (80.0-100.0) fL MCH 25.8 (25.0-35.0) pg MCHC 32.0 (31.0-37.0) g/dL RDW 14.1 (11.5-15.5) % Plt Count 242 (150-450) k/uL MPV 8.6 Neutrophils % 76 % Lymphocytes % 18 % Monocytes % 4 % Eosinophils % 1 % Basophils % 1 % Neutrophils # 9.1 H (1.3-7.7) k/uL Lymphocytes # 2.2 (1.0-4.8) k/uL Monocytes # 0.4 (0-1.0) k/uL Eosinophils # 0.2 (0-0.7) k/uL Basophils # 0.1 (0-0.2) k/uL PT 10.5 (10.0-12.5) sec INR 0.9 (<1.2) APTT 26.7 (22.0-30.0) sec Sodium (137-145) mmol/L Potassium (3.5-5.1) mmol/L Chloride (98-107) mmol/L Carbon Dioxide (22-30) mmol/L Anion Gap mmol/L BUN (7-17) mg/dL Creatinine (0.52-1.04) mg/dL Est GFR (CKD-EPI)AfAm (>60 ml/min/1.73 sqM) Est GFR (CKD-EPI)NonAf (>60 ml/min/1.73 sqM) Glucose (74-99) mg/dL Calcium (8.4-10.2) mg/dL Magnesium (1.6-2.3) mg/dL Total Bilirubin (0.2-1.3) mg/dL AST (14-36) U/L ALT (4-34) U/L Alkaline Phosphatase (38-126) U/L Total Protein (6.3-8.2) g/dL Albumin (3.5-5.0) g/dL Lipase (23-300) U/L Urine Color Urine Appearance (Clear) Urine pH (5.0-8.0) Ur Specific Orchard (1.001-1.035) Urine Protein (Negative) Urine Glucose (UA) (Negative) Urine Ketones (Negative) Urine Blood (Negative) Urine Nitrite (Negative) Urine Bilirubin (Negative) Urine Urobilinogen (<2.0) mg/dL Ur Leukocyte Esterase (Negative) Urine RBC (0-5) /hpf Urine WBC (0-5) /hpf Ur Squamous Epith Cells (0-4) /hpf Urine Bacteria (None) /hpf Hyaline Casts (0-2) /lpf Urine Mucus (None) /hpf Urine HCG, Qual (Not Detectd) Stool Occult Blood (Negative) Blood Type O Negative Blood Type Recheck O Neg Bld Type Recheck Status No Antibody Screen NEGATIVE Spec Expiration Date 07/31/2023 - 230407/28/23 07/28/23 07/28/23 Range/Units 18:14 18:57 18:57 WBC (3.8-10.6) k/uL RBC (3.80-5.40) m/uL Hgb (11.4-16.0) gm/dL Hct (34.0-46.0) % MCV (80.0-100.0) fL MCH (25.0-35.0) pg MCHC (31.0-37.0) g/dL RDW (11.5-15.5) % Plt Count (150-450) k/uL MPV Neutrophils % % Lymphocytes % % Monocytes % % Eosinophils % % Basophils % % Neutrophils # (1.3-7.7) k/uL Lymphocytes # (1.0-4.8) k/uL Monocytes # (0-1.0) k/uL Eosinophils # (0-0.7) k/uL Basophils # (0-0.2) k/uL PT (10.0-12.5) sec INR (<1.2) APTT (22.0-30.0) sec Sodium 141 (137-145) mmol/L Potassium 3.9 (3.5-5.1) mmol/L Chloride 106 (98-107) mmol/L Carbon Dioxide 24 (22-30) mmol/L Anion Gap 11 mmol/L BUN 14 (7-17) mg/dL Creatinine 0.72 (0.52-1.04) mg/dL Est GFR (CKD-EPI)AfAm >90 (>60 ml/min/1.73 sqM) Est GFR (CKD-EPI)NonAf >90 (>60 ml/min/1.73 sqM) Glucose 103 H (74-99) mg/dL Calcium 9.9 (8.4-10.2) mg/dL Magnesium 2.0 (1.6-2.3) mg/dL Total Bilirubin 0.3 (0.2-1.3) mg/dL AST 22 (14-36) U/L ALT 26 (4-34) U/L Alkaline Phosphatase 76 (38-126) U/L Total Protein 8.0 (6.3-8.2) g/dL Albumin 5.0 (3.5-5.0) g/dL Lipase 71 (23-300) U/L Urine Color Colorless Urine Appearance Cloudy H (Clear) Urine pH 6.5 (5.0-8.0) Ur Specific Orchard 1.010 (1.001-1.035) Urine Protein Negative (Negative) Urine Glucose (UA) Negative (Negative) Urine Ketones Negative (Negative) Urine Blood Negative (Negative) Urine Nitrite Negative (Negative) Urine Bilirubin Negative (Negative) Urine Urobilinogen <2.0 (<2.0) mg/dL Ur Leukocyte Esterase Small H (Negative) Urine RBC <1 (0-5) /hpf Urine WBC 4 (0-5) /hpf Ur Squamous Epith Cells 4 (0-4) /hpf Urine Bacteria Rare H (None) /hpf Hyaline Casts 1 (0-2) /lpf Urine Mucus Rare H (None) /hpf Urine HCG, Qual Not Detected (Not Detectd) Stool Occult Blood (Negative) Blood Type Blood Type Recheck Bld Type Recheck Status Antibody Screen Spec Expiration Date 07/28/23 Range/Units 21:09 WBC (3.8-10.6) k/uL RBC (3.80-5.40) m/uL Hgb (11.4-16.0) gm/dL Hct (34.0-46.0) % MCV (80.0-100.0) fL MCH (25.0-35.0) pg MCHC (31.0-37.0) g/dL RDW (11.5-15.5) % Plt Count (150-450) k/uL MPV Neutrophils % % Lymphocytes % % Monocytes % % Eosinophils % % Basophils % % Neutrophils # (1.3-7.7) k/uL Lymphocytes # (1.0-4.8) k/uL Monocytes # (0-1.0) k/uL Eosinophils # (0-0.7) k/uL Basophils # (0-0.2) k/uL PT (10.0-12.5) sec INR (<1.2) APTT (22.0-30.0) sec Sodium (137-145) mmol/L Potassium (3.5-5.1) mmol/L Chloride (98-107) mmol/L Carbon Dioxide (22-30) mmol/L Anion Gap mmol/L BUN (7-17) mg/dL Creatinine (0.52-1.04) mg/dL Est GFR (CKD-EPI)AfAm (>60 ml/min/1.73 sqM) Est GFR (CKD-EPI)NonAf (>60 ml/min/1.73 sqM) Glucose (74-99) mg/dL Calcium (8.4-10.2) mg/dL Magnesium (1.6-2.3) mg/dL Total Bilirubin (0.2-1.3) mg/dL AST (14-36) U/L ALT (4-34) U/L Alkaline Phosphatase (38-126) U/L Total Protein (6.3-8.2) g/dL Albumin (3.5-5.0) g/dL Lipase (23-300) U/L Urine Color Urine Appearance (Clear) Urine pH (5.0-8.0) Ur Specific Or[place] (1.001-1.035) Urine Protein (Negative) Urine Glucose (UA) (Negative) Urine Ketones (Negative) Urine Blood (Negative) Urine Nitrite (Negative) Urine Bilirubin (Negative) Urine Urobilinogen (<2.0) mg/dL Ur Leukocyte Esterase (Negative) Urine RBC (0-5) /hpf Urine WBC (0-5) /hpf Ur Squamous Epith Cells (0-4) /hpf Urine Bacteria (None) /hpf Hyaline Casts (0-2) /lpf Urine Mucus (None) /hpf Urine HCG, Qual (Not Detectd) Stool Occult Blood Positive H (Negative) Blood Type Blood Type Recheck Bld Type Recheck Status Antibody Screen Spec Expiration Date Disposition <Delia Avila - Last Filed: 07/28/23 18:26> Is patient prescribed a controlled substance at d/c from ED?: No Time of Disposition: 23:22 <Zachariah Muñoz - Last Filed: 07/29/23 04:01> Clinical Impression: Rectal bleeding Disposition: HOME SELF-CARE Condition: Good Instructions (If sedation given, give patient instructions): Gastrointestinal Bleeding (ED) Additional Instructions: Follow-up with PCP and GI. Report back to ER with any new or worsening symptoms. Referrals: Carson Brambila MD [Primary Care Provider] - 1-2 days Maribel Singleton MD [STAFF PHYSICIAN] - 1-2 days
[2023-07-28 18:34] LABS: Basophils # (A) 0.1 k/uL (0-0.2); Basophils % (A) 1 %; Eosinophils # (A) 0.2 k/uL (0-0.7); Eosinophils % (A) 1 %; HCT 44.2 % (34.0-46.0); HGB 14.1 gm/dL (11.4-16.0); Lymphocytes # (A) 2.2 k/uL (1.0-4.8); Lymphocytes % (A) 18 %; MCH 25.8 pg (25.0-35.0); MCV 80.7 fL (80.0-100.0); Mean Platelet Volume 8.6; Monocytes # (A) 0.4 k/uL (0-1.0); Monocytes % (A) 4 %; Neutrophils # (A) 9.1 k/uL (1.3-7.7); Neutrophils % (A) 76 %; Platelet Count 242 k/uL (150-450); RBC 5.47 m/uL (3.80-5.40); RDW 14.1 % (11.5-15.5); WBC 12.1 k/uL (3.8-10.6)
[2023-07-28 18:46] LABS: INR 0.9 (<1.2); Partial Thromboplastin Time 26.7 sec (22.0-30.0); Prothrombin Time 10.5 sec (10.0-12.5)
[2023-07-28 18:54] LABS: ALT 26 U/L (4-34); AST 22 U/L (14-36); African American GFR (CKD) >90 (>60 ml/min/1.73 sqM); Alkaline Phosphatase 76 U/L (38-126); Anion Gap 11 mmol/L; Blood Urea Nitrogen 14 mg/dL (7-17); Calcium 9.9 mg/dL (8.4-10.2); Carbon Dioxide 24 mmol/L (22-30); Chloride 106 mmol/L (98-107); Glucose 103 mg/dL (74-99); Lipase 71 U/L (23-300); Non-African American GFR(CKD) >90 (>60 ml/min/1.73 sqM); Potassium 3.9 mmol/L (3.5-5.1); Sodium 141 mmol/L (137-145); Total Bilirubin 0.3 mg/dL (0.2-1.3)
[2023-07-28 19:08] LABS: Appearance,Urine Cloudy (Clear); Bacteria,Urine Rare /hpf; Bilirubin,Urine Negative (Negative); Blood,Urine Negative (Negative); Color,Urine Colorless; Glucose,Urine (UA) Negative (Negative); Hyaline Casts,Urine 1 /lpf (0-2); Ketones,Urine Negative (Negative); Leukocyte Esterase,Urine Small (Negative); Mucus,Urine Rare /hpf; Nitrite,Urine Negative (Negative); PH, Urine 6.5 (5.0-8.0); Protein,Urine Negative (Negative); RBC,Urine <1 /hpf (0-5); Squamous Epithelial Cell,Urine 4 /hpf (0-4); Urobilinogen,Urine <2.0 mg/dL (<2.0); WBC,Urine 4 /hpf (0-5)
--- NOTE | 2023-07-28 23:02 | CT ---
EXAMINATION TYPE: CT angio abdomen pelvis DATE OF EXAM: 07/28/2023 HISTORY: Lower abdominal pain and rectal bleeding CT DLP: 1200mGycm Automated Exposure Control for Dose Reduction was Utilized. CONTRAST: CT scan of the abdomen and pelvis is performed without and with IV Contrast, patient injected with 10 0 mL of Isovue 370. Three-D reconstructed images are created and a workstation and reviewed COMPARISON: Prior CT May 28, 2012 FINDINGS: Vascular: No hypodensity noncontrast images to suggest intramural hematoma. Celiac artery, SMA, bilat eral single renal arteries are patent without significant plaque or stenosis. Patent iliac and femora l arteries bilaterally without significant plaque or stenosis. No AAA. No linear Hypodensity to sugge st dissection. LUNG BASES: No significant abnormality is appreciated. LIVER/GB: Intraluminal nondependent 1.5 cm gallstone axial image 66. Gallbladder shows no suspicious surrounding fluid or fat stranding. PANCREAS: No significant abnormality is seen. SPLEEN: There are 2 large anterior splenule on current study noted. ADRENALS: No significant abnormality is seen. KIDNEYS: No significant abnormality is seen. BOWEL: No intraluminal focus of hyperdensity on postcontrast images with more hyperdense material in the delayed images to localize site of active bleeding. UTERUS/ADNEXA: Retroflexed uterus. Central metallic IUD. LYMPH NODES: No greater than 1cm abdominal or pelvic lymph nodes are appreciated. OSSEOUS STRUCTURES: No significant abnormality is seen. OTHER: Small fat-containing umbilical hernia sagittal image 94. IMPRESSION: No site of active bleeding clearly identified within the bowel. No acute findings are lyle dent.
== END 2023-07-28 23:27 | disposition home or self-care (01) ==
LOC: EC 17:33
DX: K62.5 Hemorrhage of anus and rectum (principal)
CPT/HCPCS: 99285 ×2; 36415; 86900; 86901; 80053; 83690; 83735; 85025; 85610; 85730; 86850; 82272; 81001; 81025; 74174; Q9967

== ENCOUNTER → 2023-09-02 | Outpatient (CLI) | payer OTHER ==
--- NOTE | 2023-09-02 13:03 | US ---
EXAMINATION TYPE: US pelvic complete DATE OF EXAM: 09/02/2023 COMPARISON: CLINICAL INDICATION: Female, 28 years old with history of N94.10 DYSPAREUNIA Z97.[address]; IUD x 1 year. Pain with intercourse. TECHNIQUE: Transabdominal (TA). Transabdominal sonographic images of the pelvis were acquired. Date of LMP: 08/28/2023, EXAM MEASUREMENTS: Uterus: 7.9 x 4.9 x 4.3 cm Endometrial Stripe: 0.4 cm Right Ovary: 3.0 x 2.3 x 1.9 cm Left Ovary: 3.4 x 2.0 x 1.9 cm 1. Uterus: Retroverted wnl 2. Endometrium: IUD visualized within endometrial canal 3. Right Ovary: wnl 4. Left Ovary: wnl 5. Bilateral Adnexa: wnl 6. Posterior cul-de-sac: no free fluid IMPRESSION: IUD well-positioned. Examination is unremarkable.
== END | disposition home or self-care (01) ==
LOC: RADUSWWP 12:25
PROVIDERS: ATTEND Obstetrics & Gynecology
DX: N94.10 Unspecified dyspareunia (principal); Z97.5 Presence of (intrauterine) contraceptive device
CPT/HCPCS: 76856